=== PATIENT | female | born 1980 | race Caucasian/White ===

== ENCOUNTER 2016-04-25 08:59 | Inpatient (IN) | payer MEDICAID ==
[~2016-04-25] VITALS: Ht 165.1 cm; Wt 88.5 kg
[2016-04-25] VITALS (17 sets, daily range): BP systolic 101–127; BP diastolic 47–73; PULSE 79–100; RESP 9–20; TEMP 97.8–98.6; O2SAT 88–99
[~2016-04-25 08:59] MED LIST: FERR325T72 PO; METR500T10 PO; PREN1CAP20; PREN1CAP7 PO
[2016-04-25] MEDS ORDERED: LACTATED RINGER'S 1000 ML INJ 1,000 ML IV ONE (09:28)
--- NOTE | 2016-04-25 09:32 | HHI.HP ---
HPI Chief Complaint Here for scheduled Date Seen: Apr 25, 2016 Time Seen: 09:30 Travel History International Travel<30 Days: No Contact w/Intl Traveler<30Days: No History of Present Illness HPI 35 year old at 39/2 here for scheduled . She is GBS positive. She has good movements. No loss of fluid. Feels contractions every 30 to 60 mins. No headache, blurry vision, difficulty breathing, chest pain, abdominal pain, nausea, vomiting, diarrhea, or calf tenderness. History Past Medical History Narrative Medical None Obstetric History Obstetric History 1st: full term vaginal delivery 2nd: delivered at 32 weeks by , twins 3rd: full term by 4th: current No significant complications in current Has anemia of , takes 325 mg ferrous sulfate daily Has trichomonas treated X3, no test of cure Follows with Jessica Schaefer Takes vitamins Borderline low [place] by patient report labs normal Blood type A RH positive Antibody negative Rubella immune HIV neg GC/chlamydia negative Failed 1 hr GGT, passed 3 hr GBS positive Past Surgical History Narrative Surgical Prior c-sections x2 Family History Narrative Family History None significant Social History Narrative Social History No smoking, drinking, or drug use Allergies-Medications (Allergen,Severity, Reaction): Coded Allergies: No Known Allergies (Verified , 04/17/16) Home Meds Active Scripts Metronidazole 500 Mg Tab2,000 Mg PO NOW #4 TAB Ref 0 Prov:Dee Skinner CNM [facility] 04/24/16 Ferrous Gluconate 325 Mg Neu148 Mg PO BID #60 TAB Ref 11 Prov:Dee Skinner CNM [facility] 01/24/16 W/O Vit A W/ Fe Fumar (Citranatal [place])27-1-260 Mg Cap1 Cap PO DAILY #30 CAP Ref 11 Prov:Dee Skinner CNM [facility] 01/17/16 Reported Medications W/O Vit A W/ Fe Carbo (Prenate Mini 18-0.6-0.4-350 mg)1 Cap Cap 01/17/16 Review of Systems Except as stated in HPI: all other systems reviewed are Neg Physical Exam Narrative GENERAL: Comfortable SKIN: Warm and dry. HEAD: Normocephalic and atraumatic. EYES: No scleral icterus. No injection or drainage. ENT: No nasal drainage noted. Mucous membranes pink. Airway patent. NECK: Supple, trachea midline. No JVD. CARDIOVASCULAR: Regular rate and rhythm without murmurs, gallops, or rubs. RESPIRATORY: Breath sounds equal bilaterally. No accessory muscle use. ABDOMEN/GI: Abdomen soft, non-tender, bowel sounds present, no rebound, no guarding Gravid to [39] weeks size GENITOURINARY: Uterine Contractions: [none] FHT's: Category: [1] Baseline: [130's] Reactive: [yes] Variability: [moderate] Decels: [none] EXTREMITIES: No cyanosis or edema. BACK: Nontender without obvious deformity. No CVA tenderness. NEUROLOGICAL: Awake and alert. Data Data Vital Signs Reviewed: Yes Assessment/Plan Assessment and Plan 35 year old here for scheduled . She is GBS positive. - Penicillin prophylaxis for GBS positive status. - Continuous monitoring. - Pre-op cefazolin. - Plan for . - Trichomonas positive as of 04/24/16, metronidazole after delivery Discuss with Nick Tabares MD R2 Apr 25, 2016 09:32 - Penicillin prophylaxis for GBS positive status. - Wet mount for history of trichomonas without test of cure. - Continuous monitoring. - Nick Jung MD R2 Apr 25, 2016 09:32
[2016-04-25] MEDS ORDERED: LACTATED RINGER'S 1000 ML INJ 1,000 ML IV SCH ×2 (09:58→17:40)
[2016-04-25] MEDS ORDERED: PENICILLIN G POTASSIUM INJ 5,000,000 UNITS in SODIUM CHLORIDE 0.9% INJ 100 ML IV ONE (10:00)
[2016-04-25 10:26] LABS: AUTOMATED NEUTROPHIL # 3.8 TH/MM3 (1.8-7.7); BASOPHIL % 0.5 % (0.0-2.0); EOSINOPHIL % 0.2 % (0.0-4.0); HEMATOCRIT 23.7 % (35.0-46.0); LYMPH % 15.4 % (9.0-44.0); LYMPHOCYTE # 0.8 TH/MM3 (1.0-4.8); MEAN CELL VOLUME 68.8 FL (80.0-100.0); MEAN CORPUSCULAR HEMOGLOBIN 20.7 PG (27.0-34.0); MONO % 9.2 % (0.0-8.0); NEUT % 74.7 % (16.0-70.0); PLATELET COUNT 178 TH/MM3 (150-450); RED BLOOD COUNT 3.44 MIL/MM3 (4.00-5.30); RED CELL DISTRIBUTION WIDTH 19.7 % (11.6-17.2); WHITE BLOOD COUNT 5.1 TH/MM3 (4.0-11.0)
[2016-04-25 10:29] LABS: HEMO FLAGS AUTO DIFF
[2016-04-25] MEDS ORDERED: ceFAZolin 2 GM PREMIX 50 ML IV SCH (10:30)
[2016-04-25 10:43] LABS: BLOOD, URINE NEG (NEG); COMMENT (UR) CULTURE INDICATED; CULTURE IF INDICATED CULTURE INDICATED; GLUCOSE,URINE NEG (NEG); KETONE, URINE NEG (NEG); MUCUS URINE FEW /lpf (OCC); NITRITE,URINE NEG (NEG); PH, URINE 6.5 (5.0-8.5); SQUAMOUS EPITHELIAL CELL URINE 5 /hpf (0-5)
[2016-04-25 10:45] LABS: URINE COLOR YELLOW (YELLW/STRAW)
[2016-04-25 10:48] LABS: BACTERIA, URINE FEW /hpf
[2016-04-25] MEDS ORDERED: CITRIC ACID-SODIUM CITRATE LIQ 30 ML UDC PO SCH (11:00)
[2016-04-25 11:04] LABS: SCAN/DIFF AUTO DIFF CONFIRMED
[2016-04-25] MEDS ORDERED: OXYTOCIN 10 UNIT/ML AMP ONE (11:23)
[2016-04-25] MEDS ORDERED: EPIDURAL-NALOXONE HCL 0.4 MG/ML AMP IV PRN (11:40)
[2016-04-25] MEDS ORDERED: EPIDURAL-DIPHENHYDRAMINE HCL 50 MG/ML VIAL IV PUSH PRN (11:40)
[2016-04-25] MEDS ORDERED: EPIDURAL-NO SYSTEMIC NARCOTICS XX PRN (11:40)
[2016-04-25] MEDS ORDERED: EPIDURAL-DIPHENHYDRAMINE HCL 50 MG CAP PO PRN (11:40)
[2016-04-25] MEDS ORDERED: EPIDURAL-DO NOT ADMINISTER ANTICOAGULANTS XX PRN (11:40)
[2016-04-25] MEDS ORDERED: ACETAMINOPHEN 325 MG TAB PO PRN (12:45)
[2016-04-25] MEDS ORDERED: ONDANSETRON HCL 4 MG/2 ML VIAL IV PUSH PRN (12:45)
[2016-04-25] MEDS ORDERED: ZOLPIDEM TARTRATE 5 MG TAB PO PRN (12:45)
[2016-04-25] MEDS ORDERED: OXYTOCIN 30 UNITS-500ML PREMIX 500 ML IV ONE (12:45)
[2016-04-25] MEDS ORDERED: SODIUM CHLORIDE 0.9% FLUSH 5 ML FLUSH IV PRN (12:45)
[2016-04-25] MEDS ORDERED: MORPHINE SULFATE PF 5 MG/10 ML VIAL ONE (12:50)
[2016-04-25] MEDS ORDERED: KETOROLAC TROMETHAMINE 30 MG/ML (IVP) VIAL ONE (13:16)
[2016-04-25] MEDS: KETOROLAC TROMETHAMINE 60 MG/2 ML (IM) VIAL IM PRN ×2 (13:17→21:46)
[2016-04-25] MEDS ORDERED: PENICILLIN G POTASSIUM INJ 2,500,000 UNITS in SODIUM CHLORIDE 0.9% INJ 100 ML IV SCH (14:00)
[2016-04-25 17:21] LABS: HEMATOCRIT 21.3 % (35.0-46.0); MEAN CELL VOLUME 68.5 FL (80.0-100.0); MEAN CORPUSCULAR HEMOGLOBIN 20.8 PG (27.0-34.0); MEAN CORPUSCULAR HGB CONC 30.4 % (32.0-36.0); PLATELET COUNT 163 TH/MM3 (150-450); RED BLOOD COUNT 3.11 MIL/MM3 (4.00-5.30); RED CELL DISTRIBUTION WIDTH 19.3 % (11.6-17.2); WHITE BLOOD COUNT 7.2 TH/MM3 (4.0-11.0)
[2016-04-25 17:27] LABS: REVIEW FLAG FINAL
[2016-04-25] MEDS ORDERED: SODIUM CHLORIDE 0.9% FLUSH 5 ML FLUSH IV SCH (21:00)
--- NOTE | 2016-04-25 22:11 | MP ---
cc: JULIANA MAYO MD DATE OF SURGERY: 04/25/2016 PREOPERATIVE DIAGNOSIS: Previous section x2, for repeat at term. POSTOPERATIVE DIAGNOSIS: Previous section x2, for repeat at term. PROCEDURE PERFORMED Repeat low transverse section. SURGEON Antoinette Mayo MD. ANESTHESIA Spinal. PRE-OP NOTE The patient is a 35 year-old white female, G3, P2, with two previous C-sections, now for repeat section at term. PROCEDURE The patient was taken to the operating room and placed in supine position on the operating table. After adequate spinal anesthesia was administered she was prepped and draped for abdominal surgery. The previous Pfannenstiel incision was excised out. The incision was carried through to the fascia sharply, the fascia dissected laterally off the rectus muscle. The peritoneal cavity was entered sharply and the incision was extended superiorly and inferiorly. A bladder blade was placed in the lower edge of the incision and the incision was stretched out a little bit. The visceral peritoneum was then reflected off the lower uterine segment sharply. A transverse hysterotomy was made and extended bluntly bilaterally. Moderate meconium stained fluid noted at that time. The was delivered in vertex presentation, weight was 3350 grams. Apgars 8 and 9, a female. There were no complications at delivery. Cord blood obtained. Placenta manually extracted. The hysterotomy closed with a running layer of 0 chromic followed by imbricating suture of same. Hemostasis was achieved. Several stick ties noted on the left angle in order to achieve hemostasis which was successful. The uterus was replaced. The peritoneal cavity, blood suctioned from the cul-de-sac and gutters. The rectus muscle reapproximated with stick ties of Vicryl. The fascia was closed with a running layer of 0 Vicryl. The subcutaneous tissue was reapproximated with running 0 plain suture. The skin was closed with 3-0 Monocryl on a Emile needle. Pressure dressing applied. Blood loss 500 cc. No complications. Sponge and needle counts were correct x2. The patient went to Recovery in stable condition and the baby to the well-baby nursery. MD WILLI Pascual/JUAN PABLO /12:48 PM /9:56 PM
[2016-04-25] MEDS ORDERED: OXYTOCIN 30 UNITS-500ML PREMIX 500 ML IV PRN (22:45)
[2016-04-26] VITALS (7 sets, daily range): BP systolic 99–115; BP diastolic 60–70; PULSE 69–86; RESP 18–20; TEMP 97.8–98.6
[2016-04-26] MEDS: oxyCODONE/ACETAMINOPHEN 5 MG/325 MG TAB PO PRN ×3 (01:07→19:13)
[2016-04-26] MEDS: IBUPROFEN 600 MG TAB PO PRN ×3 (03:29→16:34)
[2016-04-26 05:18] LABS: AUTOMATED NEUTROPHIL # 5.3 TH/MM3 (1.8-7.7); BASOPHIL % 0.2 % (0.0-2.0); EOSINOPHIL % 0.1 % (0.0-4.0); LYMPHOCYTE # 0.9 TH/MM3 (1.0-4.8); MEAN CORPUSCULAR HEMOGLOBIN 22.3 PG (27.0-34.0); MEAN CORPUSCULAR HGB CONC 31.8 % (32.0-36.0); MONO % 8.5 % (0.0-8.0); NEUT % 78.2 % (16.0-70.0); PLATELET COUNT 125 TH/MM3 (150-450); RED BLOOD COUNT 2.84 MIL/MM3 (4.00-5.30); RED CELL DISTRIBUTION WIDTH 19.9 % (11.6-17.2); WHITE BLOOD COUNT 6.8 TH/MM3 (4.0-11.0)
[2016-04-26 05:20] LABS: HEMO FLAGS AUTO DIFF
[2016-04-26 05:23] LABS: HEMATOCRIT 19.9 % (35.0-46.0)
[2016-04-26 06:09] LABS: REVIEW FLAG FINAL
[2016-04-26 06:12] LABS: HEMATOCRIT 20.9 % (35.0-46.0)
--- NOTE | 2016-04-26 07:02 | HHI.OB ---
Subjective Post Operative Day: 1 Remarks Postop day 1 , afebrile vital signs stable Patient's initial postoperative hemoglobin 6.3 and was given 2 units of blood through late yesterday & in the evening. Her posttransfusion hemoglobin 6.9 however the patient felt clinically much better after the blood and fluid and has continued to feel good her post operative and bleeding is minimal her incision is clean and dry, lungs are clear cardiovascular regular rate and rhythm, the uterus is at the umbilicus at this time with a hematocrit of 20.3 he consider giving more blood the patient feels clinically so much improved and her vitals all are stable urine output is good ,.we'll just wait and start her on some iron tomorrow and predischarge she'll take that chronically Objective Vitals/I&O Vital Signs Date Time Temp Pulse Resp B/P Pulse Ox O2 Delivery O2 Flow Rate FiO2 04/26/16 03:00 98.2 69 20 107/63 04/26/16 03:00 98.2 69 18 107/63 04/26/16 01:00 98.0 69 18 99/60 04/26/16 01:00 98.0 69 18 99/60 04/26/16 00:00 97.8 72 18 103/64 04/26/16 00:00 72 103/64 04/26/16 00:00 97.8 18 04/25/16 22:20 97.8 81 18 109/68 04/25/16 22:15 98.3 92 20 110/73 04/25/16 22:10 98.0 86 20 113/66 04/25/16 22:05 98.2 86 20 115/63 04/25/16 21:57 98.1 96 18 101/62 04/25/16 20:00 98.4 88 18 110/72 04/25/16 14:50 97.9 82 16 103/55 04/25/16 14:01 92 18 123/65 98 04/25/16 13:56 98.2 04/25/16 13:45 80 114/69 04/25/16 13:45 97 04/25/16 13:45 18 04/25/16 13:28 86 18 118/71 04/25/16 13:28 95 04/25/16 13:12 92 18 127/67 99 04/25/16 13:04 99 04/25/16 13:01 88 04/25/16 12:53 100 18 109/52 04/25/16 12:53 98.6 98 04/25/16 11:16 79 108/47 04/25/16 11:15 18 Result Diagram: 04/26/16 0556 Objective Remarks GENERAL: Well-nourished, well-developed patient. CARDIOVASCULAR: Regular rate and rhythm without murmurs, gallops, or rubs. RESPIRATORY: Breath sounds equal bilaterally. No accessory muscle use. ABDOMEN/GI: Abdomen soft, non-tender, bowel sounds present. Incision: Clean, dry and intact. Fundus: Firm, non-tender at umbilicus. GENITOURINARY: Light to moderate bleeding. EXTREMITIES: No cyanosis or edema, non-tender, without signs of DVT. Medications and IVs Current Medications Medications (Trade) Dose Ordered Sig/Star Route Start Time Stop Time Status Last Admin Lactated Ringer's 1,000 ml @ 150 mls/hr Q6H40M IV 04/25/16 09:58 04/25/16 10:47 (Lr 1000 ml Inj) 1,000 ml @ 100 mls/hr Q10H IV 04/25/16 17:40 04/26/16 13:39 (NS Flush) 2 ml BID IV 04/25/16 21:00 (NS Flush) 2 ml UNSCH PRN IV 04/25/16 12:45 (Mylicon Chew) 80 mg QID PRN PO 04/25/16 12:45 (Tylenol) 650 mg Q6H PRN PO 04/25/16 12:45 (Motrin) 600 mg Q6H PRN PO 04/25/16 12:45 04/26/16 03:29 (Toradol Inj) 30 mg Q6H PRN IM 04/25/16 12:45 04/26/16 12:44 04/25/16 21:46 (Percocet 5-325 Mg) 1 tab Q4H PRN PO 04/25/16 12:45 04/26/16 01:07 (Percocet 5-325 Mg) 2 tab Q4H PRN PO 04/25/16 12:45 (Chetna-Colace) 2 tab Q12H PRN PO 04/25/16 12:45 (Ambien) 5 mg HS PRN PO 04/25/16 12:45 (M-M-R Ii Inj) 0.5 ml ONCE ONCE SQ 04/26/16 16:00 04/26/16 16:01 (Boostrix Inj) 0.5 ml ONCE ONCE IM 04/26/16 16:00 04/26/16 16:01 (Zofran Inj) 4 mg Q6H PRN IV PUSH 04/25/16 12:45 04/25/16 19:18 Miscellaneous Information NO SYSTEMIC NARCOTICS TO BE GIVEN FO... UNSCH PRN XX 04/25/16 11:40 04/26/16 11:39 (Narcan Inj) 0.4 mg UNSCH PRN IV 04/25/16 11:40 04/26/16 11:39 (Benadryl Inj) 25 mg Q6H PRN IV PUSH 04/25/16 11:40 04/26/16 11:39 (Benadryl) 50 mg Q6H PRN PO 04/25/16 11:40 04/26/16 11:39 Miscellaneous Information ALL NURSING DEPARTMENTS UNSCH PRN XX 04/25/16 11:40 04/26/16 11:39 Assessment/Plan Assessment and Plan 35 year old here for scheduled . She is GBS positive. - Penicillin prophylaxis for GBS positive status. - Continuous monitoring. - Pre-op cefazolin. - Plan for . - Trichomonas positive as of 04/24/16, metronidazole after delivery Discuss with Alfredo Guillermo II, MD Apr 26, 2016 07:02
[2016-04-26 07:05] LABS: BANDS 4 % (0-6); NEUTROPHIL # MANUAL DIFF 5.6 TH/MM3 (1.8-7.7); POLYS (SEG NEUTROPHILS) 78 % (16-70); WBC DIFF SAMPLE 100
[2016-04-26 07:06] LABS: PLATELET ESTIMATE SMEAR LOW (NORMAL); PLATELET MORPHOLOGY NORMAL (NORMAL); SCAN/DIFF FINAL DIFF MANUAL
[2016-04-26] MEDS ORDERED: MEASLES, MUMPS, RUBELLA VACCINE 0.5 ML VIAL SQ ONE (16:00)
[2016-04-26] MEDS ORDERED: DIPHTH/TETANUS/ACEL PERTUSSIS (BOOSTER) 0.5 ML VIAL/PFS IM ONE (16:00)
[2016-04-26] MEDS: DOCUSATE SODIUM 50 MG/SENNA 8.6 MG TAB PO PRN (19:13)
[2016-04-26] MEDS: SIMETHICONE 80 MG CHEWABLE TAB PO PRN (19:13)
[2016-04-26 19:39] LABS: REVIEW FLAG FINAL
[2016-04-26 19:42] LABS: HEMATOCRIT 20.9 % (35.0-46.0)
[2016-04-27] MEDS: IBUPROFEN 600 MG TAB PO PRN ×3 (01:15→20:06)
[2016-04-27] MEDS: oxyCODONE/ACETAMINOPHEN 5 MG/325 MG TAB PO PRN ×3 (01:16→21:59)
[2016-04-27 06:03] LABS: AUTOMATED NEUTROPHIL # 5.6 TH/MM3 (1.8-7.7); BASOPHIL % 0.2 % (0.0-2.0); EOSINOPHIL # 0.1 TH/MM3 (0-0.4); EOSINOPHIL % 0.9 % (0.0-4.0); LYMPHOCYTE # 0.9 TH/MM3 (1.0-4.8); MEAN CELL VOLUME 70.7 FL (80.0-100.0); MEAN CORPUSCULAR HEMOGLOBIN 22.4 PG (27.0-34.0); MEAN CORPUSCULAR HGB CONC 31.6 % (32.0-36.0); MONO % 9.4 % (0.0-8.0); NEUT % 77.5 % (16.0-70.0); PLATELET COUNT 134 TH/MM3 (150-450); RED BLOOD COUNT 2.72 MIL/MM3 (4.00-5.30); RED CELL DISTRIBUTION WIDTH 20.1 % (11.6-17.2); WHITE BLOOD COUNT 7.2 TH/MM3 (4.0-11.0)
[2016-04-27 06:18] LABS: HEMO FLAGS AUTO DIFF
[2016-04-27 06:19] LABS: HEMATOCRIT 19.2 % (35.0-46.0)
--- NOTE | 2016-04-27 07:22 | HHI.OB ---
Subjective Post Operative Day: 2 Remarks Postoperative day # 2. AFVSS overnight. Incision not draining. Decreased lochia , like a light period. Denies dysuria. No breast tenderness. She is feeding the baby via breast and supplemental formula. Appetite good. No nausea or vomiting. No dizziness when standing. Walking around without difficulty. Pain well-controlled. Patient has not yet had a bowel movement but is passing flatus. Denies calf pain or shortness of breath. Unsure if she will be ready to leave today as she is still working on a routine with new baby. (Jeaneth Brooks MD R1) Remarks I rounded on the patient. I rounded with the resident. I reviewed the resident' s assessment and plan of care for this patient. I am in agreement with the plan of care for this patient. (Ratna Edgar MD) Objective Vitals/I&O Vital Signs Date Time Temp Pulse Resp B/P Pulse Ox O2 Delivery O2 Flow Rate FiO2 04/26/16 19:36 98.3 86 20 04/26/16 19:35 115/70 04/26/16 08:11 98.6 70 18 04/26/16 08:11 98.6 70 18 04/26/16 08:10 110/70 04/26/16 08:10 110/70 (Jeaneth Brooks MD R1) Result Diagram: 04/27/16 0529 Objective Remarks GENERAL: Well-nourished, well-developed female in NAD. Possible conjunctival pallor. Alert and awake. CARDIOVASCULAR: Regular rate and rhythm without murmurs, gallops, or rubs. RESPIRATORY: Breath sounds equal bilaterally. No accessory muscle use. ABDOMEN/GI: Abdomen soft, non-tender, bowel sounds present. Incision: Clean, dry and intact. Steri-strips in place. Fundus: Firm, non-tender below umbilicus. GENITOURINARY: Light bleeding. EXTREMITIES: No cyanosis or edema, non-tender, without signs of DVT. Medications and IVs Current Medications Medications (Trade) Dose Ordered Sig/Star Route Start Time Stop Time Status Last Admin (Lr 1000 ml Inj) 1,000 ml @ 150 mls/hr Q6H40M IV 04/25/16 09:58 04/25/16 10:47 (NS Flush) 2 ml BID IV 04/25/16 21:00 (NS Flush) 2 ml UNSCH PRN IV 04/25/16 12:45 (Mylicon Chew) 80 mg QID PRN PO 04/25/16 12:45 04/26/16 19:13 (Tylenol) 650 mg Q6H PRN PO 04/25/16 12:45 (Motrin) 600 mg Q6H PRN PO 04/25/16 12:45 04/27/16 01:15 (Percocet 5-325 Mg) 1 tab Q4H PRN PO 04/25/16 12:45 04/26/16 01:07 (Percocet 5-325 Mg) 2 tab Q4H PRN PO 04/25/16 12:45 04/27/16 01:16 (Chetna-Colace) 2 tab Q12H PRN PO 04/25/16 12:45 04/26/16 19:13 (Ambien) 5 mg HS PRN PO 04/25/16 12:45 (Zofran Inj) 4 mg Q6H PRN IV PUSH 04/25/16 12:45 04/25/16 19:18 (Jeaneth Brooks MD R1) Assessment/Plan Assessment and Plan 35 y/o female who is POD# 2 s/p repeat C section. Post- Day #2 -Continue routine care. -Percocet and ibuprofen PRN pain. -Encouraged OOB. Advised pelvic rest for 6 wks. - Will need a f/u appt. in 1 wk for incision check. -Re: ctrl, she would like IUD -Anticipate discharge today or tomorrow -Follow-up in one week with [facility] Anemia -Normal BP, patient is asymptomatic, possibly tired but not sleeping much with new baby -Chronic, she is likely iron-deficient. Will start iron TID once having BMs -Should get iron studies 1-2 months after starting iron, further work-up if indicated -Hgb 6.1 this morning, baseline approximately 8. -F/u with PCP for monitoring [facility] Dr. English Discharge Planning D/C to home today or tomorrow (Jeaneth Brooks MD R1) Jeaneth Brooks MD R1 Apr 27, 2016 07:22 Ratna Edgar MD Apr 27, 2016 10:12
[2016-04-27 07:58] LABS: ACANTHOCYTES OCC (NORMAL)
[2016-04-27 07:59] LABS: OVALOCYTES 1+ (NORMAL); PLATELET ESTIMATE SMEAR LOW (NORMAL); PLATELET MORPHOLOGY NORMAL (NORMAL); SCAN/DIFF AUTO DIFF CONFIRMED
[2016-04-27 08:36] VITALS: BP 128/78; PULSE 82; RESP 20
[2016-04-27 08:37] VITALS: TEMP 98
[2016-04-27] MEDS: DOCUSATE SODIUM 50 MG/SENNA 8.6 MG TAB PO PRN (13:50)
[2016-04-27 19:02] LABS: HEMATOCRIT 21.1 % (35.0-46.0); MEAN CELL VOLUME 71.3 FL (80.0-100.0); MEAN CORPUSCULAR HEMOGLOBIN 22.3 PG (27.0-34.0); MEAN CORPUSCULAR HGB CONC 31.2 % (32.0-36.0); PLATELET COUNT 167 TH/MM3 (150-450); RED BLOOD COUNT 2.97 MIL/MM3 (4.00-5.30); RED CELL DISTRIBUTION WIDTH 20.4 % (11.6-17.2); WHITE BLOOD COUNT 6.9 TH/MM3 (4.0-11.0)
[2016-04-27 19:18] LABS: REVIEW FLAG FINAL
[2016-04-27 20:00] VITALS: BP 128/81; PULSE 84; RESP 18; TEMP 99
[2016-04-27] MEDS: SIMETHICONE 80 MG CHEWABLE TAB PO PRN (20:35)
[2016-04-28] MEDS: DOCUSATE SODIUM 50 MG/SENNA 8.6 MG TAB PO PRN (01:46)
[2016-04-28] MEDS: oxyCODONE/ACETAMINOPHEN 5 MG/325 MG TAB PO PRN ×3 (01:47→11:14)
[2016-04-28] MEDS: IBUPROFEN 600 MG TAB PO PRN ×2 (01:47→11:13)
[2016-04-28] MEDS ORDERED: IBUP-232 PO (07:21)
[2016-04-28] MEDS ORDERED: PERI8.6T PO (07:21)
[2016-04-28] MEDS ORDERED: OXYC1TAB63 PO (07:21)
[2016-04-28] MEDS ORDERED: CALNTAB PO (07:21)
--- NOTE | 2016-04-28 07:22 | HHI.DCPOC ---
Discharge Care Plan Diagnosis: (1) delivery delivered (2) Anemia affecting Report Symptoms to Your Doctor -Temperate above 100.5 degrees -Redness, of incision or excessive or foul smelling drainage -Unusual pain or calf pain -Increased vaginal bleeding -Painful or difficulty urinating -Feelings of extreme sadness or anxiety after 2 weeks Goals to Promote Your Health * To prevent worsening of your condition and complications * To maintain your health at the optimal level Directions to Meet Your Goals Take your medications as prescribed Follow your dietary instruction Follow activity as directed Ensure plenty of rest for recovery Drink fluids for hydration Keep your appointments as scheduled Take your immunizations and boosters as scheduled If your symptoms worsen call your PCP, if no PCP go to Urgent Care Center or Emergency Room Smoking is Dangerous to Your Health. Avoid second hand smoke Call the 24-hour crisis hotline for domestic abuse at Jeaneth Brooks MD R1 Apr 28, 2016 07:21
[2016-04-28 08:05] VITALS: BP 120/67; PULSE 74; RESP 18; TEMP 98.3
--- NOTE | 2016-04-28 08:49 | HHI.OB ---
Subjective Post Operative Day: 3 Remarks Postoperative day # 3. AFVSS overnight. She is s/p 2U PRBCs on 04/26/16. Hgb this morning is 6.6, improved from 6.1 yesterday. Incision not draining. Vaginal bleeding is light. Denies dysuria. No breast tenderness. She is feeding the baby via breast. Appetite good. No nausea or vomiting. No dizziness when standing. No chest pain or shortness of breath. She states she had issues with anemia with last and saw hematology but they just monitored her anemia at that time. Walking around without difficulty. Pain well-controlled. Patient has not yet had a bowel movement but is passing flatus. Denies calf pain. Ready to go home today. Objective Vitals/I&O Vital Signs Date Time Temp Pulse Resp B/P Pulse Ox O2 Delivery O2 Flow Rate FiO2 04/27/16 20:00 99.0 18 04/27/16 20:00 84 128/81 Result Diagram: 04/27/16 1826 Objective Remarks GENERAL: Well-nourished, well-developed female in NAD. No conjunctival pallor, not obviously pale. Alert and awake. CARDIOVASCULAR: Regular rate and rhythm without murmurs, gallops, or rubs. RESPIRATORY: Breath sounds equal bilaterally. No accessory muscle use. ABDOMEN/GI: Abdomen soft, non-tender, bowel sounds present. Incision: Clean, dry and intact. Steri-strips in place. Fundus: Firm, non-tender below umbilicus. GENITOURINARY: Light bleeding. EXTREMITIES: No cyanosis or edema, non-tender, without signs of DVT. Medications and IVs Current Medications Medications (Trade) Dose Ordered Sig/Star Route Start Time Stop Time Status Last Admin (Lr 1000 ml Inj) 1,000 ml @ 150 mls/hr Q6H40M IV 04/25/16 09:58 04/25/16 10:47 (NS Flush) 2 ml BID IV 04/25/16 21:00 (NS Flush) 2 ml UNSCH PRN IV 04/25/16 12:45 (Mylicon Chew) 80 mg QID PRN PO 04/25/16 12:45 04/27/16 20:35 (Tylenol) 650 mg Q6H PRN PO 04/25/16 12:45 (Motrin) 600 mg Q6H PRN PO 04/25/16 12:45 04/28/16 01:47 (Percocet 5-325 Mg) 1 tab Q4H PRN PO 04/25/16 12:45 04/27/16 13:50 (Percocet 5-325 Mg) 2 tab Q4H PRN PO 04/25/16 12:45 04/28/16 05:54 (Chetna-Colace) 2 tab Q12H PRN PO 04/25/16 12:45 04/28/16 01:46 (Ambien) 5 mg HS PRN PO 04/25/16 12:45 (Zofran Inj) 4 mg Q6H PRN IV PUSH 04/25/16 12:45 04/25/16 19:18 Assessment/Plan Assessment and Plan 35 y/o female who is POD# 3 s/p repeat C section. Stable for discharge. Post-Op Day #3 -Continue routine postop care. -Percocet and ibuprofen PRN pain. Rx given for discharge. -Encouraged OOB. Advised pelvic rest for 6 wks. - Will need a f/u appt. in 1 wk for incision check. [facility] appt already scheduled for SundayMay 02 -Re: ctrl, she would like IUD -Anticipate discharge today -Follow-up in one week with [facility] Anemia -Normal BP, patient is asymptomatic today -Chronic, unclear etiology, but outpatient work-up is warranted. -Patient was on iron BID as outpatient, she should continue upon discharge -Should get iron studies 1-2 months after starting iron, further work-up if indicated -H/H 6.6/21.1 this morning from 6.1/19.2 yesterday, baseline may be low -F/u with PCP for monitoring, work-up DW Dr. Mayo Discharge Planning D/C to home today or tomorrow Jeaneth Brooks MD R1 Apr 28, 2016 08:49
[2016-05-23] MEDS ORDERED: METR500T10 PO (11:36)
[2016-05-31] MEDS ORDERED: METR500T10 PO ×2 (16:15→16:16)
== END 2016-04-28 13:39 | disposition home or self-care (01) | DRG 765 ==
LOC: H2EB 08:59 → H1EA 14:37
PROVIDERS: ADMIT Obstetrics & Gynecology Maternal & Fetal Medicine; ATTEND Obstetrics & Gynecology Maternal & Fetal Medicine
PROC: 10D00Z1 Extraction of Products of Conception, Low, Open Approach (ICD-10-PCS; principal; 2016-04-25)
PROC: 30233N1 Transfusion of Nonautologous Red Blood Cells into Peripheral Vein, Percutaneous Approach (ICD-10-PCS; 2016-04-25)
DX: O34.219 Maternal care for unspecified type scar from previous cesarean delivery (principal); O98.32 Other infections with a predominantly sexual mode of transmission complicating childbirth; A59.9 Trichomoniasis, unspecified; O99.824 Streptococcus B carrier state complicating childbirth; O99.013 Anemia complicating pregnancy, third trimester; D50.9 Iron deficiency anemia, unspecified; O77.0 Labor and delivery complicated by meconium in amniotic fluid; Z37.0 Single live birth; Z3A.39 39 weeks gestation of pregnancy
CPT/HCPCS: 36430; 81001; 85007; 85014; 85018; 85025; 85027; 86850; 86900; 86901; 86920; 87086; J0690; J1885; J2274; J2405; J2590; J7120; P9016